=== PATIENT | female | born 1950 | race Caucasian/White ===

== ENCOUNTER 2016-12-14 11:13 | Emergency (ER) | payer MEDICARE, OTHER ==
[2016-12-14 13:21] LABS: HEMOGLOBIN 14.3 gm/dl (12.3-15.3); RED BLOOD COUNT 4.54 M/UL (4.00-5.10); WHITE BLOOD COUNT 8.9 K/UL (4.5-11.0)
[2016-12-14 13:35] LABS: BUN/CREATININE RATIO 28 (0-10)
== END 2016-12-14 17:50 | disposition home or self-care (01) ==
LOC: ER1 11:13 → ZEROF 15:54 → ER1 17:50
PROVIDERS: Emergency Medicine
DX: R55 Syncope and collapse (principal); R07.9 Chest pain, unspecified; M54.6 Pain in thoracic spine; F17.200 Nicotine dependence, unspecified, uncomplicated; Z86.718 Personal history of other venous thrombosis and embolism; Z88.0 Allergy status to penicillin; Z88.5 Allergy status to narcotic agent
CPT/HCPCS: 36415; 70450; 71010; 80053; 84484; 85025; 85379; 93005; 99285

== ENCOUNTER → 2021-11-03 | Outpatient (CLI) | payer MEDICARE, OTHER ==
[~2021-11-03] MED LIST: OMEPRAZOLE40 MG PO
== END ==
LOC: HEART 5 11-02 07:30 → NM 09:53
DX: Z01.810 Encounter for preprocedural cardiovascular examination (principal)
CPT/HCPCS: 78452; 93017; A9502; J2785

== ENCOUNTER → 2022-01-05 | Outpatient (CLI) | payer MEDICARE, OTHER ==
[2022-01-05 08:07] LABS: HEMOGLOBIN 12.9 gm/dl (12.3-15.3); RED BLOOD COUNT 4.13 M/UL (4.00-5.10); WHITE BLOOD COUNT 7.7 K/UL (4.5-11.0)
[2022-01-05 08:34] LABS: BUN/CREATININE RATIO 31 (0-10)
== END ==
LOC: CT 07:45
PROVIDERS: Internal Medicine Hematology & Oncology
DX: I82.509 Chronic embolism and thrombosis of unspecified deep veins of unspecified lower extremity (principal); C34.11 Malignant neoplasm of upper lobe, right bronchus or lung
CPT/HCPCS: 36415; 70470; 71260; 80053; 85025; Q9967

== ENCOUNTER → 2022-01-30 | Day surgery (SDC) | payer MEDICARE, OTHER ==
[~2022-01-30] MED LIST changes: +LOSARTAN POTASS25 MG PO; +LOW DOSE ASPIRI81 MG PO; +NICOTINE PATCH1 EAC2 PO; +NICOTINE PATCH1 EAC2 TD; +PROZAC40 MG PO; +SYNTHROID112 MCG PO; +XANAX0.25 MG PO
== END | disposition home or self-care (01) ==
LOC: OR 05:31
DX: C34.90 Malignant neoplasm of unspecified part of unspecified bronchus or lung (principal); J44.9 Chronic obstructive pulmonary disease, unspecified; F32.A Depression, unspecified; I10 Essential (primary) hypertension; E03.9 Hypothyroidism, unspecified; F17.210 Nicotine dependence, cigarettes, uncomplicated; Z88.5 Allergy status to narcotic agent; Z88.0 Allergy status to penicillin; Z79.82 Long term (current) use of aspirin; Z79.899 Other long term (current) drug therapy
CPT/HCPCS: 77001; C1769; C1788; J0690; J1100; J1642; J2001; J2405; J2704; J3010; J7040

== ENCOUNTER → 2022-02-12 | Outpatient (CLI) | payer MEDICARE, OTHER | LOC: HEART 5 09:15 | DX: C34.90 Malignant neoplasm of unspecified part of unspecified bronchus or lung (principal) | CPT/HCPCS: 94060; 94729 ==

== ENCOUNTER → 2022-02-28 | Outpatient (CLI) | payer MEDICARE, OTHER | LOC: CT 07:43 | DX: Z01.818 Encounter for other preprocedural examination (principal); I82.509 Chronic embolism and thrombosis of unspecified deep veins of unspecified lower extremity; C34.11 Malignant neoplasm of upper lobe, right bronchus or lung; J90 Pleural effusion, not elsewhere classified | CPT/HCPCS: 36415; 71250; 85049; 85610; 85730 ==